=== PATIENT | female | born 1950 | race Two or more races ===

== ENCOUNTER → 2016-04-19 | Day surgery (SDC) | payer MEDICARE, OTHER, SELFPAY ==
--- NOTE | 2016-04-14 17:02 | Pre-Procedure Note/Attestation ---
Pre-Procedure Note/Attestation Complete Prior to Procedure Planned Procedure: left Procedure Narrative: 1.CATARACT EXTRACTION WITH PHACO AND PC IOL IMPLANTATION, LEFT EYE. 2.LIMBAL RELAXING INCISION (LRI), LEFT EYE. Indications for Procedure Pre-Operative Diagnosis: 1. CATARACT, LEFT EYE. 2.ASTIGMATISM, LEFT EYE. Attestation I attest that I discussed the nature of the procedure; its benefits; risks and complications; and alternatives (and the risks and benefits of such alternatives ), prior to the procedure, with the patient (or the patient's legal outside sales representative insurance). I attest that, if there was a reasonable possibility of needing a blood transfusion, the patient (or the patient's legal outside sales representative insurance) was given the [place] Department of Health Services standardized written summary, pursuant to the [place] Blood Safety Act ([place] Health and Safety Code # 1645, as amended). I attest that I re-evaluated the patient just prior to the surgery and that there has been no change in the patient's H&P, except as documented below: PERRY AYALA Apr 14, 2016 17:02
[~2016-04-19] VITALS: Ht 155 cm; Wt 95.3 kg
[2016-04-19] VITALS (9 sets, daily range): BP systolic 128–162; BP diastolic 59–81
[~2016-04-19] MED LIST: ADVAIR 250-501 EACH INH; ADVAIR 500-501 EACH INH; Akten 3.5% 1ml Btl ONE; BSS 15ml BTL ONE; BSS 500ml btl ONE; CALCIUM600 M1 PO; CELEBREX200 MG ORAL; CYCLOBENZAPRINE10 MG ORAL; DICLOFENAC SODI25 MG ORAL; Dexamethasone 4mg/ml vial ONE; Diclofenac Sod 0.1% Op Soln ONE; DiphenhydrAMINE 50mg/ml Inj IVP PRN; EPINEPHrine 1mg/1ml Amp ONE; GABAPENTIN300 MG ORAL; Gatifloxacin Opth Solution 0.5% ONE; IBUPROFEN600 MG ORAL; LEVOTHROID PO; LR 1000ml 1,000 ML IVLG SCH; LR 1000ml ONE; Lidocaine 1% MPF 10mg/ml 5ml ONE; METHOCARBAMOL500 MG ORAL; Midazolam 2mg/2ml Inj ONE; Phenylephrine 10% Opth Soln 5ml ONE; Povidone-Iodine 5% opth solution ONE; Propofol 10mg/ml 20ml IV ONE; Sodium Hyaluronate 10 mg/ml 0.85ml ONE; Tetracaine 0.5% Opth Soln ONE; Tropicamide 1% Opth Soln ONE; VENTOLIN HFA18 GM INH; VITAMIN D250000 UNI1 ORAL; [UNRECOGNIZED DRUG - OTHER]; acetaZOLAMIDE 125mg tab ORAL ONE; fentaNYL 100 mcg/2 mL IV ONE; fentaNYL 100 mcg/2 mL IV PRN
[2016-04-19] MEDS: Diclofenac Sod 0.1% Op Soln LEFT EYE SCH ×3 (09:37→10:01)
[2016-04-19] MEDS: Akten 3.5% 1ml Btl LEFT EYE SCH ×3 (09:37→10:01)
[2016-04-19] MEDS: Phenylephrine 10% Opth Soln 5ml LEFT EYE SCH ×3 (09:38→10:01)
[2016-04-19] MEDS: Gatifloxacin Opth Solution 0.5% LEFT EYE SCH ×3 (09:38→10:01)
[2016-04-19] MEDS: Tropicamide 1% Opth Soln LEFT EYE SCH ×3 (09:38→10:01)
--- NOTE | 2016-04-19 10:44 | Anethesia Preoperative Eval ---
Anesthesia Pre-op PMH/ROS General Date of Evaluation: Apr 19, 2016 Time of Evaluation: 10:16 Anesthesiologist: Feliberto ASA Score: ASA 3 Mallampati Score Class I : Soft palate, uvula, fauces, pillars visible Class II: Soft palate, uvula, fauces visible Class III: Soft palate, base of uvula visible Class IV: Only hard plate visible Mallampati Classification: Class III Surgeon: Leidy Diagnosis: L eye caaract Surgical Procedure: L eye cataract extraction with IOL Anesthesia History: none Family History: no anesthesia problems Allergies: Coded Allergies: No Known Allergies (Unverified , 04/14/16) Medications: see eMAR Past Medical History Cardiovascular: Reports: HTN, Denies: CAD, [place], arrhythmia, other, valve dz Pulmonary: Reports: CLAUDIA, asthma - mild Gastrointestinal/Genitourinary: Reports: GERD, Denies: CRI, ESRD, other Neurologic/Psychiatric: Reports: other - chronic back pain Endocrine: Reports: hypothyroidism, Denies: DM, other, steroids HEENT: Reports: cataract (L), cataract (R), Denies: [place] (L), MI'KMAQ (R), glaucoma, other Other: obesity PMH Narrative: as above PSxH Narrative: R shoulder Sx Anesthesia Pre-op Phys. Exam Physician Exam Last Vital Signs Date Time Temp Pulse Resp B/P Pulse Ox O2 Delivery O2 Flow Rate FiO2 04/19/16 09:46 97.0 60 17 162/72 98 Room Air Constitutional: NAD Neurologic: CN 2-12 intact Cardiovascular: RRR, no M/R/G Respiratory: CTA Gastrointestinal: other - obesity Airway Exam Mallampati Score: Class III MO: limited Neck: short ROM: limited Teeth: intact Dentures: no lower, no upper Anesthesia Pre-op A/P Labs see chart Studies Pre-op Studies: EKG Risk Assessment & Plan Assessment: ASA 3 Plan: MAC Status Change Before Surgery: No Pre-Antibiotics Drug: none RAHEEM JOAQUIN M.D. Apr 19, 2016 10:44
--- NOTE | 2016-04-19 11:05 | Brief Operative Note ---
Immediate Post Operative Note Operative Note Chief Complaint: Blurry vision, left eye, difficulty driving and reading Pre-op Diagnosis: 1. CATARACT, LEFT EYE. 2.ASTIGMATISM, LEFT EYE. Procedure: Cataract extraction with phaco and PC IOL implantation, left eye Post-op Diagnosis: same as pre-op Surgeon: Perry Forbes MD [place] Instructor: None Additional Surgeons: None Anesthesiologist: Dr. Dao Anesthesia: MAC Specimen: none Complications: none Condition: stable Estimated Blood Loss: none Drains: none Implant(s) used?: Yes - Multifocal PC IOL implanted in the left eye without complication PERRY FORBES Apr 19, 2016 11:05
--- NOTE | 2016-04-19 13:45 | Immediate Post-Op Evaluation ---
Immediate Post-Op Evalulation Immediate Post-Op Evalulation Procedure: L eye cataract extraction with IOL Date of Evaluation: Apr 19, 2016 Time of Evaluation: 11:20 IV Fluids: 300 Blood Products: none Estimated Blood Loss: none Urinary Output: none Blood Pressure Systolic: 134 Blood Pressure Diastolic: 58 Pulse Rate: 72 Respiratory Rate: 20 O2 Sat by Pulse Oximetry: 99 Temperature (Fahrenheit): 97.8 Pain Score (1-10): 1 Nausea: No Vomiting: No Complications none Patient Status: awake, patent, none Hydration Status: adequate RAHEEM JOAQUIN M.D. Apr 19, 2016 13:45
--- NOTE | 2016-04-19 13:47 | 48 Hour Post Anesthesia Eval ---
Post Anesthesia Evaluation Procedure: L eye cataract extraction with IOL Date of Evaluation: Apr 19, 2016 Time of Evaluation: 13:45 Blood Pressure Systolic: 128 0: 59 Pulse Rate: 74 Respiratory Rate: 20 Temperature (Fahrenheit): 97.5 O2 Sat by Pulse Oximetry: 99 Airway: patent Nausea: No Vomiting: No Pain Intensity: 2 Hydration Status: adequate Cardiopulmonary Status: stable Mental Status/LOC: patient returned to baseline Follow-up Care/Observations: n/a Post-Anesthesia Complications: none Follow-up care needed: ready to discharge RAHEEM JOAQUIN M.D. Apr 19, 2016 13:47
--- NOTE | 2016-04-20 00:48 | Operative Note - Dictated ---
DATE OF OPERATION: 04/19/2016 FACILITY: [facility]. SURGEON: Mralon Forbes M.D. DENTIST ATTENDANT: None. ANESTHESIOLOGIST: Omar Dao M.D. ANESTHESIA: Monitored anesthesia care (MAC). PREOPERATIVE DIAGNOSIS: Cataract, left eye. POSTOPERATIVE DIAGNOSIS: Cataract, left eye. SURGERY PERFORMED: Cataract extraction with phacoemulsification and posterior chamber intraocular lens implantation in the left eye. INDICATION FOR SURGERY: The patient is a 65-year-old lady with history of hypertension, hypothyroidism, poor memory/cognition, asthma, anxiety, spinal stenosis, and cervical spine . Social history, the patient is not allergic to any medication or is not addicted to any drugs. She has had right shoulder surgery because of right rotator cuff tear. She is taking medications including Advair 500/50, two puffs q.i.d., Flonase nasal spray, ibuprofen tablets 600 mg, one tablets t.i.d., levothyroxine 0.62 mcg one a day, Motrin, Phenergan cough syrup, Ventolin HFA 0.09 mg/ metered dose, and vitamin D softgel. She is also taking Lasix, Lexapro, MiraLax, Singulair 10 mg, and tramadol. She is complaining of blurry vision in the left eye. On examination of the left eye, the cornea is clear. Anterior chamber is clean and quiet. Pupillary reflex is normal. There is 3+ nuclear sclerosis and 2+ cortical cataract. The funduscopy shows normal optic disc, normal macula, and periphery retina is flat. To improve her vision in the left eye, the cataract has to be removed and posterior chamber intraocular lens has to be implanted . INFORMED CONSENT: The nature of the surgery, risks, benefits, alternatives, and potential complications were explained in detail to the patient, in her language Farsi. The potential complications including, but not limited to bleeding, infection, posterior capsular rupture, lens subluxation, flat anterior chamber, iris prolapse corneal edema, macular edema, wound leakage, retinal detachment, endophthalmitis, uveitis, loss of vision, and even loss of the eye were all explained in detail to the patient in her language, Farsi. The patient voiced understanding and accepted all the complications. The alternatives including accommodating lenses, multifocal lenses, toric lens, and conventional cataract surgery with limbal relaxing incision for treatment of astigmatism were all explained in detail to the patient. The patient voiced understanding. The patient decided to have cataract surgery in the left eye with insertion of multifocal intraocular lens and limbal relaxing incision for treatment of astigmatism. She signed the consent form, which is in the chart. DESCRIPTION OF SURGERY AND FINDINGS: Following that, the patient was taken to the operation room in stable condition. Akten 3.5% gel were applied to the conjunctiva of the right eye. IV sedation was given by the anesthesiologist, Dr. Dao. After adequate anesthesia and sedation has been achieved, the left eye was prepped and draped in sterile fashion for intraocular surgery. Following that, a speculum was placed in the left eye. Before the patient was taken to the operation room, the eye was marked at 180 and 90 meridian. In the operation room, the cornea was marked with a corneal marker and marking pen and the steep meridian of the cornea was marked. Following that, using a manuelito knife with 600 micron blade, two parallel incisions were placed on the steep meridian of the cornea. Following that, using a Super Sharp knife, a clear corneal side port was created. A 1% lidocaine without preservative (MPF) was injected into the anterior chamber. The viscoelastic agent was injected into the anterior chamber. Following that, using a 2.8 mm keratome, the clear corneal temporal keratotomy was performed and a viscoelastic agent was injected into the anterior chamber again. Following that, Vision Blue was injected under the viscoelastic agent to stain the anterior capsule. Following that, clear fresh viscoelastic agent, Healon was injected into the anterior chamber again. Under the viscoelastic agent, an anterior capsulotomy was performed in the fashion of capsulorrhexis beautifully. Following that, whole viscoelastic agent was removed from the anterior chamber. Following that, aspiration was performed with balanced salt solution and the nucleus was freed. Following that, the viscoelastic agent was injected into the anterior chamber again to protect the endothelium of the cornea. Following that, using the phacoemulsification machine in the fashion of horizontal chop, the nucleus was removed in toto. Following that, with irrigation and aspiration unit, cortical material was removed from the capsular bag and the capsular bag was polished. Following that, the capsular bag was filled with viscoelastic agent, Healon. Following that, +21.5 diopter ZLB00 foldable PCIOL with serial number [id number] was injected into capsular bag. Using a Sinskey hook, the lens was manipulated within the proper position. Following that, the viscoelastic agent was removed from the anterior posterior part of the lens and the anterior chamber was filled with balanced salt solution. The wound was hydrated with balanced salt solution. The wound was checked for leakage and there was no leakage. Vigamox eyedrops were applied to the conjunctiva of the left eye. The patient tolerated the surgery without complications. At the end of the surgery, the eye was patched with a clear sterile fenestrated shield. Following that, the patient was transferred to the recovery room. In the recovery room, 125 mg Diamox was given by mouth stat. Postoperative orders and directions were given to the patient. The patient will be discharged home upon stabilization. The patient will be followed in my office tomorrow morning at 6:30 a.m. Marlon Forbes M.D. DR: JOSELYN JOB#: [id number] CC:
--- NOTE | 2016-04-20 05:18 | Discharge Summary ---
DATE OF ADMISSION: 04/19/2016 DATE OF DISCHARGE: 04/19/2016 REASON FOR ADMISSION: Cataract in the left eye. SURGERY PERFORMED: 1. Cataract extraction with phacoemulsification and posterior chamber intraocular lens implantation. 2. Limbal relaxing incision (LRI), performed in the eye for the treatment of astigmatism. CONDITION IN THE HOSPITAL: The patient tolerated the surgery without complications. The patient was stable at discharge. DISCHARGE MEDICATIONS: 1. Prednisolone 1% q.i.d., left eye. 2. Vigamox eyedrops one drop q.i.d., left eye. 3. Acular one drop q.i.d., left eye. POSTOPERATIVE ORDERS: The patient has to rest at home. No bending. No lifting. No watching TV tonight. Postoperative Followup: The patient will be followed in my office tomorrow morning at 6:30 a.m. Marlon Forbes M.D. DR: JOSELYN JOB#: [id number] CC:
== END | disposition home or self-care (01) ==
LOC: SUR 08:53
DX: H25.12 Age-related nuclear cataract, left eye (principal); H25.012 Cortical age-related cataract, left eye; H52.202 Unspecified astigmatism, left eye; E03.9 Hypothyroidism, unspecified; J45.909 Unspecified asthma, uncomplicated; F41.9 Anxiety disorder, unspecified; F32.9 Major depressive disorder, single episode, unspecified; R60.9 Edema, unspecified; E55.9 Vitamin D deficiency, unspecified; G31.84 Mild cognitive impairment of uncertain or unknown etiology; I10 Essential (primary) hypertension; G47.33 Obstructive sleep apnea (adult) (pediatric); G89.29 Other chronic pain; M54.9 Dorsalgia, unspecified; E66.9 Obesity, unspecified; M17.0 Bilateral primary osteoarthritis of knee; M19.042 Primary osteoarthritis, left hand; M19.041 Primary osteoarthritis, right hand
CPT/HCPCS: 66984; 66999; J0171; J1100; J2250; J2704; J3010; J7120; V2632; 94003; 94150

== ENCOUNTER → 2016-04-26 | Day surgery (SDC) | payer MEDICARE, OTHER, SELFPAY ==
--- NOTE | 2016-04-22 16:04 | Pre-Procedure Note/Attestation ---
Pre-Procedure Note/Attestation Complete Prior to Procedure Planned Procedure: right Procedure Narrative: 1.CATARACT EXTRACTION WITH PHACO AND PC IOL IMPLANTATION, RIGHT EYE. 2.LIMBAL RELAXING INCISION (LRI), RIGHT EYE. Indications for Procedure Pre-Operative Diagnosis: 1. CATARACT, RIGHT EYE. 2.ASTIGMATISM, RIGHT EYE. Attestation I attest that I discussed the nature of the procedure; its benefits; risks and complications; and alternatives (and the risks and benefits of such alternatives ), prior to the procedure, with the patient (or the patient's legal manufacturers representative). I attest that, if there was a reasonable possibility of needing a blood transfusion, the patient (or the patient's legal manufacturers representative) was given the [place] Department of Health Services standardized written summary, pursuant to the [place] Blood Safety Act ([place] Health and Safety Code # 1645, as amended). I attest that I re-evaluated the patient just prior to the surgery and that there has been no change in the patient's H&P, except as documented below: PERRY AYALA Apr 22, 2016 16:04
[~2016-04-26] VITALS: Ht 152.4 cm; Wt 95.3 kg
[2016-04-26] VITALS (13 sets, daily range): BP systolic 128–155; BP diastolic 68–85
[~2016-04-26] MED LIST changes: +Carbachol 0.01% Op Soln 1.5ml vial ONE; +NS Irrig 1000ml ONE; +Sterile Water Irrig 1000ml IRRIG ONE
[2016-04-26] MEDS: Akten 3.5% 1ml Btl RIGHT EYE SCH ×3 (06:09→06:28)
[2016-04-26] MEDS: Phenylephrine 10% Opth Soln 5ml RIGHT EYE SCH ×3 (06:10→06:28)
[2016-04-26] MEDS: Gatifloxacin Opth Solution 0.5% RIGHT EYE SCH ×3 (06:10→06:27)
[2016-04-26] MEDS: Tropicamide 1% Opth Soln RIGHT EYE SCH ×3 (06:10→06:28)
[2016-04-26] MEDS: Diclofenac Sod 0.1% Op Soln RIGHT EYE SCH ×3 (06:10→06:27)
--- NOTE | 2016-04-26 07:38 | Anethesia Preoperative Eval ---
Anesthesia Pre-op PMH/ROS General Date of Evaluation: Apr 26, 2016 Time of Evaluation: 07:10 Anesthesiologist: Feliberto ASA Score: ASA 3 Mallampati Score Class I : Soft palate, uvula, fauces, pillars visible Class II: Soft palate, uvula, fauces visible Class III: Soft palate, base of uvula visible Class IV: Only hard plate visible Mallampati Classification: Class III Surgeon: Leidy Diagnosis: R eye cataract Surgical Procedure: R eye cataract extraction Anesthesia History: none Family History: no anesthesia problems Allergies: Coded Allergies: No Known Allergies (Unverified , 04/14/16) Medications: see eMAR Past Medical History Cardiovascular: Reports: HTN, Denies: CAD, [place], arrhythmia, other, valve dz Pulmonary: Reports: CLAUDIA, asthma Gastrointestinal/Genitourinary: Reports: GERD, Denies: CRI, ESRD, other Neurologic/Psychiatric: Reports: other - chronic back pain, Denies: CVA, TIA, dementia, depression/anxiety Endocrine: Denies: DM, hypothyroidism, other, steroids HEENT: Reports: cataract (L), cataract (R), Denies: [place] (L), [place] (R), glaucoma, other Hematology/Immune: Denies: DVT, anemia, bleeding disorder, other Musculoskeletal/Integumentary: Denies: DDD, DJD, OA, RA, edema, other Other: obesity PMH Narrative: as above PSxH Narrative: L eye cataract Anesthesia Pre-op Phys. Exam Physician Exam Last Vital Signs Date Time Temp Pulse Resp B/P Pulse Ox O2 Delivery O2 Flow Rate FiO2 04/26/16 06:32 98.4 18 140/76 57 Room Air Constitutional: NAD Neurologic: CN 2-12 intact Cardiovascular: RRR, no M/R/G Respiratory: CTA Gastrointestinal: other - obesity Airway Exam Mallampati Score: Class III MO: limited Neck: short ROM: limited Teeth: intact Dentures: no lower, no upper Anesthesia Pre-op A/P Labs see chart Studies Pre-op Studies: EKG - NSR Risk Assessment & Plan Assessment: ASA 3 Plan: Mac Status Change Before Surgery: No Pre-Antibiotics Drug: none RAHEEM JOAQUIN M.D. Apr 26, 2016 07:38
--- NOTE | 2016-04-26 08:15 | Brief Operative Note ---
Immediate Post Operative Note Operative Note Chief Complaint: Blurry vision, right eye, difficulty driving and reading Pre-op Diagnosis: 1. CATARACT, RIGHT EYE. 2.ASTIGMATISM, RIGHT EYE. Procedure: 1- Cataract extraction with phaco and PC IOL implantation, right eye. 2- Limbal relaxing incision ( LRI ), right eye Post-op Diagnosis: same as pre-op Surgeon: Perry Forbes md Hand Meat Salter: nONE Additional Surgeons: nONE Anesthesiologist: dR. Cantrell Anesthesia: MAC Specimen: none Complications: none Condition: stable Estimated Blood Loss: none Drains: none Implant(s) used?: Yes - Multifocal pc IOL implanted in the right eye without complication PERRY FORBES Apr 26, 2016 08:15
--- NOTE | 2016-04-26 08:39 | Immediate Post-Op Evaluation ---
Immediate Post-Op Evalulation Immediate Post-Op Evalulation Procedure: R eye cataract extraction with IOL Date of Evaluation: Apr 26, 2016 Time of Evaluation: 08:14 IV Fluids: 200 Blood Products: none Estimated Blood Loss: none Urinary Output: none Blood Pressure Systolic: 136 Blood Pressure Diastolic: 72 Pulse Rate: 68 Respiratory Rate: 20 O2 Sat by Pulse Oximetry: 99 Temperature (Fahrenheit): 97.5 Pain Score (1-10): 1 Nausea: No Vomiting: No Complications none Patient Status: awake, patent, none Hydration Status: adequate RAHEEM JOAQUIN M.D. Apr 26, 2016 08:39
--- NOTE | 2016-04-26 09:51 | 48 Hour Post Anesthesia Eval ---
Post Anesthesia Evaluation Procedure: R eye cataract extraction with IOL Date of Evaluation: Apr 26, 2016 Time of Evaluation: 09:49 Blood Pressure Systolic: 128 0: 74 Pulse Rate: 64 Respiratory Rate: 20 Temperature (Fahrenheit): 97.5 O2 Sat by Pulse Oximetry: 98 Airway: patent Nausea: No Vomiting: No Pain Intensity: 2 Hydration Status: adequate Cardiopulmonary Status: stable Mental Status/LOC: patient returned to baseline Follow-up Care/Observations: n/a Post-Anesthesia Complications: none Follow-up care needed: ready to discharge RAHEEM JOAQUIN M.D. Apr 26, 2016 09:51
--- NOTE | 2016-04-26 11:38 | Pre-op HX & Phy Repo 2 SIG ---
DATE OF ADMISSION: 04/26/2016 PRESURGICAL INTERNAL MEDICINE HISTORY AND PHYSICAL: REASON FOR EVALUATION: I was asked by Dr. Marlon Forbes to see this 65-year-old female in history and physical evaluation. The patient was evaluated. Chart was reviewed. The patient requested. Most information obtained from old chart and the daughter at bedside. The patient has a cataract right eye. See full Ophthalmology History and Physical by Dr. Marlon Forbes. PAST MEDICAL HISTORY/REVIEW OF SYSTEMS: Remarkable for history of chronic obstructive pulmonary disease, low back pain, migraine headache, hypothyroidism. Denies history of chest pain, palpitation, or heart attack. Denies history of stroke or seizures. No history of diabetes. No history of renal failure. No anemia radiating to lower back. osteoarthritis of the spine. The patient is alert, has morbid obesity. Her BMI is 41.0 kg/m2. PAST SURGICAL HISTORY: Right shoulder history and left eye cataract FAMILY HISTORY: Mother has diabetes mellitus. ALLERGIES: . Present Medications: Include albuterol inhaler as well as inhaler, Levothroid, Voltaren, Celebrex 03:29 syrup, vitamin D 50,000 units weekly, calcium carbonate, and gabapentin 300 mg daily. HABITS: Denies tobacco or alcohol use. No street drugs. PHYSICAL EXAMINATION: GENERAL: Alert female in her 60s. No acute distress. VITAL SIGNS: Blood pressure 140/76, temperature 98.4, pulse 57, respirations 18, and O2 saturation 95% on room air. SKIN: Dry and warm. No rashes. No diaphoresis. LYMPHATICS: Lymph nodes enlarged. HEENT: Head, normocephalic and atraumatic. Ears, clear. Eyes, full description per Dr. Marlon Forbes. Mouth, clear and moist. No dentures. Nose, clear. No discharge. NECK: No jugular distention. Carotids artery +2. Trachea midline. No palpable mass. CHEST: No deformity or asymmetry. LUNGS: Clear. No rales or rhonchi. HEART: Sinus rhythm. Sound distant. No murmur. No S3 or S4. ABDOMEN: Soft, obese. Liver and spleen are not enlarged. No palpable mass. No rebound. EXTREMITIES: No edema. No calf tenderness. GENITOURINARY: CVA nontender. No dysuria. Dar Brand M.D. DR: MARI JOB#: [id number] CC:
--- NOTE | 2016-04-27 00:27 | Operative Note - Dictated ---
DATE OF OPERATION: 04/26/2016 FACILITY: [facility]. SURGEON: Marlon Forbes M.D. AUTO FORMER MACHINE OPERATOR: None. ANESTHESIOLOGIST: Omar Dao M.D. ANESTHESIA: Monitored anesthesia care (MAC). PREOPERATIVE DIAGNOSES: 1. Cataract, right eye. 2. Astigmatism. POSTOPERATIVE DIAGNOSES: 1. Cataract, right eye. 2. Astigmatism. SURGERY PERFORMED: 1. Cataract extraction with phacoemulsification and posterior chamber intraocular lens implantation in the right eye. 2. Limbal relaxing incision (LRI). INDICATION FOR SURGERY: The patient is a 65-year-old lady with history of osteoarthritis, osteopenia, morbid obesity, hypertension, and hypercholesterolemia. She has had right shoulder rotator cuff tear status post surgery in 2014. She had also hypothyroidism, poor memory/cognition, asthma, anxiety, spinal stenosis of cervical spine, and depression. She is taking medications for asthma and anti-depression medication. She is taking Advair 500/50, Flonase nasal spray, ibuprofen, levothyroxine, Motrin, Ventolin HFA, vitamin D, and . She has had a surgery in the left eye last week and she is happy with the results. Now, she is complaining of blurred vision in the right eye. On examination of the right eye, the cornea is clear. Anterior chamber is clean and quiet. The pupillary reflex is normal. There is no RAPD. She has 3+ nuclear sclerosis and 2+ cortical cataract. The funduscopy shows normal macula, normal optic discs, and peripheral retina is flat. To improve her vision in the right eye, the cataract has to be removed and posterior chamber intraocular lens has to be implanted. Meanwhile, she has astigmatism that has to be addressed to give good vision to the patient. INFORMED CONSENT: The nature of the surgery, risks, benefits, alternatives, and potential complications were explained in detail to the patient in the language Farsi. Therefore, the potential complications including, but not limited to bleeding, infection, posterior capsular rupture, lens subluxation, flat anterior chamber, iris prolapse, corneal edema, macular edema, wound leakage, retinal detachment, endophthalmitis, uveitis, loss of vision, and even loss of the eye were all explained in detail to the patient. The patient was understanding and accepted all the complications. The alternatives including accommodating lens, multifocal lens, toric lens, and conventional cataract surgery with limbal relaxing incision for treatment of astigmatism were all explained in detail to the patient. The patient voiced understanding and accepted all the complications. She elected to have conventional cataract surgery with insertion of the multifocal lens plus limbal relaxing incision for treatment of her astigmatism. Then, she signed the consent form, which is in the chart. DESCRIPTION OF SURGERY AND FINDINGS: Following that, the patient was taken to the operation room in a stable condition. Lidocaine gel, Akten 3.5% were applied to the conjunctiva of the right eye. IV sedation was given by the anesthesiologist, Dr. Dao. After adequate anesthesia sedation has been achieved, the right eye was prepped and draped in sterile fashion for intraocular surgery. Following that, a speculum was placed in the right eye. Before the patient was taken to the operation room, the cornea was marked at 180 and 90 meridian. In the operation room, the cornea was marked with a corneal marker and marking pen and steep meridian of the cornea was marked. Following that, using a manuelito knife with 600 micron blade, two parallel incisions were placed on the steep meridian of the cornea to treat her astigmatism. After using a Super Sharp knife, a clear corneal side port was created. A 1% lidocaine without preservatives (MPF) was injected into the anterior chamber. The viscoelastic agent, Healon was injected into the anterior chamber as well. Following that, a clear corneal temporal keratotomy was performed using a 2.8 mm keratome. Following that, a Vision Blue was injected into the anterior chamber under the viscoelastic agent to stain the anterior capsule of the lens. Following that, a clear fresh viscoelastic agent, Healon was injected into the anterior chamber again. Under the clear viscoelastic agent, an anterior capsulotomy was performed in the fashion of capsulorrhexis beautifully. Following that, viscoelastic agent was removed from the anterior chamber in toto. Following that, with balanced salt solution, hydrodissection and hydrodelineation was performed and the nucleus was freed. Following that, a clear viscoelastic agent was injected into the anterior chamber to protect the endothelium of the cornea. Following that, using the phacoemulsification machine in the fashion of horizontal chop, the nucleus was removed in toto. Following that, using the irrigation aspiration unit, all cortical material was removed from the capsular bag and capsular bag was polished. Following that, the capsular bag was filled with viscoelastic agent Healon. Following that, a 21.5 diopter ZLB00 foldable PCIOL with serial number [id number] was injected into the capsular bag. Using a Sinskey hook, the lens was manipulated and put in the proper position. Following that, viscoelastic agent was removed from the anterior posterior part of the lens. Following that, the anterior chamber was filled with balanced salt solution and the wound was hydrated with balanced salt solution. The wound was checked for leakage and there was no leakage. Vigamox eye drops were applied to the conjunctiva of the right eye. The patient tolerated the surgery without complications. At the end of surgery, the eye was patched with a clear sterile fenestrated shield. Following that, the patient was transferred to the recovery room. In the recovery room, 125 mg Diamox was given by mouth stat. Postoperative orders and directions were given to the patient. The patient will be discharged home upon stabilization. The patient will be followed tomorrow morning in my office at 7 a.m. Marlon Forbes M.D. DR: JOSELYN JOB#: [id number] CC:
--- NOTE | 2016-04-27 01:17 | Discharge Summary ---
DATE OF ADMISSION: 04/26/2016 DATE OF DISCHARGE: 04/26/2016 REASON FOR HOSPITALIZATION: Cataract, right eye. SURGERY PERFORMED: Cataract extraction with phacoemulsification and posterior chamber intraocular lens implantation in the right eye. CONDITION IN THE HOSPITAL: The patient tolerated the surgery without complications. DISCHARGE CONDITION: The patient was stable at discharge. DISCHARGE MEDICATIONS: 1. Prednisolone 1% one drop q.i.d., in the right eye. 2. Vigamox eyedrops one drop q.i.d., in the right eye. 3. Ilevro eyedrops one drop daily in the right eye. POSTOPERATIVE ORDERS: The patient has to rest at home. No bending. No lifting. POSTOPERATIVE FOLLOWUP: The patient will be followed in my office tomorrow morning at 7 o'clock. Marlon Forbes M.D. DR: JOSELYN JOB#: [id number] CC:
--- NOTE | 2016-04-27 17:28 | Pre-op HX & Phy Repo 2 SIG ---
DATE OF ADMISSION: 04/26/2016 Addendum GENITOURINARY: CVA nontender. No dysuria. LABORATORY DATA: ECG, sinus tachycardia with PACs. The patient's laboratory check is in normal limits. The patient did not eat or drink from 4 p.m. yesterday. IMPRESSION: 1. Cataract, right eye. 2. Chronic obstructive pulmonary disease. 3. Morbid obesity in which BMI is 41. 4. Hypothyroidism. 5. Low back pain due to lumbar spine degenerative disease. PLAN: Cataract extraction right eye, with intraocular lens implant per Dr. Marlon Forbes. CONCLUSION: The patient has a history of COPD, O2 saturation today is 95%. The patient's vital signs are stable. The patient did not eat or drink from last night, and laboratory normal. The patient's condition optimized for surgery. Thank you very much, Dr. Forbes, for privilege to participate in presurgical care of this interesting patient. aDr Brand M.D. DR: MARI JOB#: [id number] CC:
== END | disposition home or self-care (01) ==
LOC: SUR 05:33
DX: H25.11 Age-related nuclear cataract, right eye (principal); H25.011 Cortical age-related cataract, right eye; H52.201 Unspecified astigmatism, right eye; J44.9 Chronic obstructive pulmonary disease, unspecified; J45.909 Unspecified asthma, uncomplicated; M51.36 Other intervertebral disc degeneration, lumbar region; G43.909 Migraine, unspecified, not intractable, without status migrainosus; E03.9 Hypothyroidism, unspecified; E66.01 Morbid (severe) obesity due to excess calories; Z68.41 Body mass index [BMI] 40.0-44.9, adult; M19.90 Unspecified osteoarthritis, unspecified site; I49.1 Atrial premature depolarization; G47.33 Obstructive sleep apnea (adult) (pediatric); E78.00 Pure hypercholesterolemia, unspecified
CPT/HCPCS: 66984; 66999; J0171; J1100; J2250; J2704; J3010; J7120; V2632; 94003; 94150